=== PATIENT | female | born 1980 | race American Indian/Alaskan Native ===

== ENCOUNTER 2017-03-25 05:56 | Day surgery (SDC) | payer OTHER ==
[2017-03-25] MEDS ORDERED: NACL 0.9% 1000 ML 1,000 ML IV SCH (06:00)
[2017-03-25] MEDS ORDERED: VERSED IV NR (06:00)
[2017-03-25] MEDS ORDERED: PEPCID PO NR (06:00)
[2017-03-25] MEDS ORDERED: NACL BACTERIOSTATIC INFILTRATI ONE (06:16)
[2017-03-25] MEDS ORDERED: ANCEF/STERILE WATER 2 GM/20 ML IV NR (07:00)
[2017-03-25] MEDS ORDERED: DILAUDID IV NR (07:03)
--- NOTE | 2017-03-25 07:12 | Anesthesia Day of Surgery ---
Anesthesia Day of Surgery - Day of Surgery Patient Examined: Yes Patient H&P Reviewed: Yes Patient is NPO: Yes
--- NOTE | 2017-03-25 07:12 | Anesthesia Consultation ---
Anesthesia Consult and Med Hx Date of service: 03/25/17 - Airway Anesthetic Teeth Evaluation: Good ROM Head & Neck: Adequate Mental/Hyoid Distance: Adequate Mallampati Class: Class II Intubation Access Assessment: Good - Pulmonary Exam CTA: Yes - Cardiac Exam Cardiac Exam: No Murmur - Pre-Operative Health Status ASA Pre-Surgery Classification: ASA2 Proposed Anesthetic Plan: MAC - Pulmonary Hx Smoking: No Hx Sleep Apnea: No (SONIA PRE SCREEN NEGATIVE) - Cardiovascular System Hx Hypertension: No - Central Nervous System CVA: No (TIA- NO DEFICITS) - Hematic Hx Anemia: Yes (NOT RECENT) - Other Systems Hx Cancer: No
[2017-03-25] MEDS ORDERED: DIPRIVAN 10 MG/ML IV ONE ×3 (07:17→08:04)
[2017-03-25] MEDS ORDERED: SUBLIMAZE ONE (07:17)
[2017-03-25] MEDS ORDERED: XYLOCAINE MPF 2% ONE (07:18)
[2017-03-25] MEDS ORDERED: XYLOCAINE 1% 20 mL ONE (07:22)
[2017-03-25] MEDS ORDERED: MARCAINE-EPI/PF 0.5%-1:200,000 INFILTRATI ONE (07:22)
[2017-03-25] MEDS ORDERED: DECADRON ONE ×2 (07:22→07:40)
[2017-03-25] MEDS ORDERED: MARCAINE-EPI 0.25%-1:200,000 INFILTRATI ONE (07:28)
[2017-03-25] MEDS ORDERED: NACL 0.9% IR ONE (07:28)
[2017-03-25] MEDS ORDERED: XYLOCAINE MPF 1% INFILTRATI ONE (07:28)
--- NOTE | 2017-03-25 08:44 | Post Operative Note ---
Pre-op diagnosis: Hallux valgus left side Post-op diagnosis: same Findings: See operative report. Procedure: Kehinde bunionectomy left side. Anesthesia: MAC Surgeon: KAYLEN VARGAS Estimated blood loss: minimal Pathology: none Condition: stable Disposition: same day
--- NOTE | 2017-03-25 08:48 | Discharge Summary ---
Short Stay Discharge Plan Activity: no restrictions Weight Bearing Status: Weight Bear as Tolerated Diet: regular Wound: keep clean and dry Follow up with: PRIMARY CARE, [Primary Care Provider] - 7 Days
--- NOTE | 2017-03-25 08:53 | Post Anesthesia Evaluation ---
- Post Anesthesia Evaluation Patient Participated: Yes Airway Patent: Yes Stable Respiratory Function: Yes Nausea/Vomiting: No Temp > 96.8F: Yes Pain Manageable: Yes Adequeate Hydration: Yes Anesthesia Complications: No Block Receding Appropriately: Not Applicable Patient on Ventilator: No
--- NOTE | 2017-03-25 09:24 | Operative Report ---
SURGEON: Andrae Heart DPM NIGHT WORKER: None. PREOPERATIVE DIAGNOSIS: Painful hallux abductovalgus deformity, left side. POSTOPERATIVE DIAGNOSIS: Painful hallux abductovalgus deformity, left side. PROCEDURE: Modified Dhillon bunionectomy with osteotomy, left side. ANESTHESIA: Monitored anesthesia care with local anesthetic consisting of 1% lidocaine plain and 0.5% Marcaine with epinephrine 50:50 mixture x 10 mL. HEMOSTASIS: Epinephrine local 1:400,000. ESTIMATED BLOOD LOSS: Less than 5 mL. MATERIALS: 2.7 mm fully threaded Synthes screws x 2, one 16 mm and one 14 mm. INJECTABLES: Local as above. PATHOLOGY: None. COMPLICATIONS: None. OPERATIVE SUMMARY: On this date, the patient was deemed appropriate surgical candidate, brought to the operating room and placed on the operating table in normal supine position. Following induction of adequate intravenous anesthesia, the left foot was blocked about the medial ray with the above-mentioned local mixture. Left foot, ankle, and leg were prepped and draped in usual sterile fashion. The following procedure was then carried out. Modified Dhillon bunionectomy with osteotomy, left foot. Attention was directed to the dorsal medial aspect of left first metatarsophalangeal joint where a 6 cm curvilinear incision was placed overlying this area. Dissection was carried through this layer down to the level of superficial fascia with care to retract neurovascular structures. Electrocautery deemed necessary for surgical hemostasis. Dissection was carried through this layer down to the level of deep fascia. At this time, the capsule was appreciated on the medial side and significantly attenuated consistent with the bunion deformity. Attention was then directed to the interspace where sharp and blunt dissection was used to carry the dissection plane down to the level of the adductor tendon. The adductor tendon was released from its attachment at the fibular sesamoid and removed. The fibular collateral ligament was also transected this time allowing for relocation of the fibular sesamoid beneath the metatarsal head and into the fibular groove. The wound was flushed with normal saline. At this time, attention was redirected medially where a linear capsule periosteal incision was carried out. It was T'd out along the metatarsophalangeal joint. This exposed the head of the first metatarsal that was notably enlarged. Sagittal saw was used to resect the medial eminence. A Chevron-type osteotomy was then carried out in the first metatarsal head and along dorsal arm to allow for internal fixation. This was done utilizing an axis guide that was designed to preserve length and slightly plantar flex the head upon translation. At this time, the osteotomy was made. The head was translated approximately 5 mm laterally impacted on to the metatarsal shaft. This effectively reduced the intermetatarsal angle. The head was then fixated in standard fashion utilizing 2.7 mm fully threaded cortical screws placed in AO fashion. This was from the dorsal distal lateral to plantar proximal medial in standard technique. Excellent compression was achieved with placement of both screws. The medial overhanging wedge of bone was then resected utilizing a sagittal saw. A rotary bur was used to smooth all rough remaining edges. Wounds were flushed with copious amounts of normal sterile saline. At this time, a medial capsular redundancy was removed sharply and a 3-0 Vicryl suture was used to repair the vertical arm as well as longitudinal arm of the periosteal incision. A 4-0 and 5-0 absorbable suture was used in a running intradermal fashion and closed skin layer respectively. The wound was painted with Betadine. Steri-Strips were applied. Dry sterile dressing consisting of 4 x 4s, Randolph and Richie wrap was then applied to the left foot. The patient tolerated the above procedures and anesthesia well without complications. Vital signs stable throughout. She will be discharged with home going instructions to keep dressing clean, dry and intact. Follow up in the office in 1 week. JOB# [id number] GINA/KALLI
[2017-03-25 09:51] VITALS: BP 127/65
== END 2017-03-25 05:57 | disposition home or self-care (01) ==
LOC: OR 05:56
PROVIDERS: ATTEND Podiatrist Foot & Ankle Surgery
DX: M20.12 Hallux valgus (acquired), left foot (principal); Z91.040 Latex allergy status; Z91.018 Allergy to other foods; Z91.013 Allergy to seafood
CPT/HCPCS: 28296; 81025; C1713; J0690; J1100; J2250; J2704; J3010; J7030